=== PATIENT | male | born 1955 | race Caucasian/White ===

== ENCOUNTER 2020-09-04 22:00 | Emergency (ER) | payer OTHER ==
[~2020-09-04] VITALS: Ht 167.6 cm; Wt 72.6 kg
[2020-09-04 22:00] VITALS: BP_SYST 143
[2020-09-04] MEDS ORDERED: NACL 0.9% 1,000 ML IV ONE (22:15)
[2020-09-04 22:32] LABS: BASOPHILS # (AUTO) 0.1 K/uL (0.0-0.2); BASOPHILS % (AUTO) 1.1 % (0.0-2.0); EOSINOPHILS # (AUTO) 0.3 K/uL (0.0-0.4); EOSINOPHILS % (AUTO) 4.2 % (0.0-4.0); HEMATOCRIT 37.1 % (36-54); LYMPHOCYTES # (AUTO) 2.6 K/uL (1.0-5.5); MEAN CORPUSCULAR HEMOGLOBIN 34 pg (27-31); MEAN CORPUSCULAR HGB CONC 35 % (32-36); MEAN CORPUSCULAR VOLUME 98 fL (79.0-98.0); MONOCYTES # (AUTO) 1.1 K/uL (0.0-1.0); NEUTROPHILS % (AUTO) 42.7 % (40.0-70.0); PLATELET COUNT (AUTO) 161 K/uL (130-430); RED CELL DISTRIBUTION WIDTH 13.3 % (9.0-15.0); WHITE BLOOD COUNT (AUTO) 7.1 K/uL (4.8-10.8)
[2020-09-04 22:39] LABS: CALCIUM 7.8 mg/dL (8.4-11.0); CREATININE 0.62 mg/dL (0.55-1.30); POTASSIUM 3.6 mmol/L (3.5-5.1)
[2020-09-04 22:43] LABS: INR 1.1 (0.80-1.20); PROTHROMBIN TIME 11.2 SECS (9.5-12.5)
[2020-09-04 22:47] LABS: ALBUMIN 3.4 g/dL (3.4-4.8); TOTAL BILIRUBIN 0.2 mg/dL (0.0-1.0)
[2020-09-05 01:00] VITALS: BP_SYST 104
[2020-09-05 01:12] LABS: BILIRUBIN,URINE NEGATIVE (NEGATIVE); BLOOD, URINE NEGATIVE (NEGATIVE); CLARITY/URINE CLEAR (CLEAR); COLOR,URINE YELLOW (YELLOW); GLUCOSE,URINE NEGATIVE (NEGATIVE); KETONES,URINE NEGATIVE (NEGATIVE); LEUKOCYTE ESTERASE ,URINE NEGATIVE (NEGATIVE); NITRITE, URINE NEGATIVE (NEGATIVE); PROTEIN URINE NEGATIVE (NEGATIVE); UROBILINOGEN,URINE 0.2 (0.2-1.0)
[2020-09-05 01:21] LABS: BARBITURATE, URINE NEGATIVE (NEG <=200); BENZODIAZEPINE, URINE NEGATIVE (NEG <=150); CANNABINOID, URINE NEGATIVE (NEG <=50); COCAINE, URINE NEGATIVE (NEG <=150); METHAMPHETAMINES SCREEN,URINE NEGATIVE (NEG <=500); OPIATE, URINE NEGATIVE (NEG <=100); PHENCYCLIDINE SCREEN,URINE NEGATIVE (NEG <=25); UR TRICYCLIC ANTIDEPRESSANTS NEGATIVE (NEG <=300); URINE AMPHETAMINE NEGATIVE (NEG <=500); URINE METHADONE NEGATIVE (NEG <=200); URINE OXYCODONE SCREEN NEGATIVE (NEG <=100); URINE PROPOXYPHENE SCREEN NEGATIVE (NEG <=300)
== END 2020-09-05 01:00 | disposition home or self-care (01) ==
LOC: SED 22:00
DX: S80.212A Abrasion, left knee, initial encounter (principal); F10.10 Alcohol abuse, uncomplicated; R40.4 Transient alteration of awareness; F12.90 Cannabis use, unspecified, uncomplicated; Y90.8 Blood alcohol level of 240 mg/100 ml or more; Z79.899 Other long term (current) drug therapy; W17.89XA Other fall from one level to another, initial encounter; Y93.89 Activity, other specified; Y92.89 Other specified places as the place of occurrence of the external cause; Y99.8 Other external cause status
CPT/HCPCS: 36415; 80053; 80307; 81003; 84484; 85025; 85610; 85730; 93005; 96360; 99284; G0482; J7030